=== PATIENT | male | born 1965 | race Caucasian/White ===

== ENCOUNTER → 2017-05-04 | Outpatient (CLI) | payer OTHER | LOC: M RAD 08:02 | DX: I73.9 Peripheral vascular disease, unspecified (principal) | CPT/HCPCS: 93925 ==

== ENCOUNTER → 2017-05-25 | Outpatient (CLI) | payer OTHER ==
[~2017-05-25] MED LIST: HEPARIN 1,000 UNITS/ML 10ML VIAL (FOR RADIOLOGY& DIALYSIS ONLY) As Ordered; ISOVUE-300 61% 50ML VIAL (Q9967) As Ordered; LIDOCAINE 2% MDV 20 ML VIAL As Ordered; MIDAZOLAM INJ 2 MG/2 ML VIAL (J2250) As Ordered; NORCO, ANEXSIA 5/325MG TABLET (HYDROcodone/ACETAMINOPHEN) As Ordered; PROTAMINE SULF INJ 50 MG/5 ML VIAL (J2720) As Ordered; fentaNYL 100 MCG/2 ML INJECTION (J3010) As Ordered
== END | disposition home or self-care (01) ==
LOC: M IRPRO 08:48
DX: I70.298 Other atherosclerosis of native arteries of extremities, other extremity (principal); I70.0 Atherosclerosis of aorta; I10 Essential (primary) hypertension; Z72.0 Tobacco use
CPT/HCPCS: 37221

== ENCOUNTER → 2017-07-19 | Outpatient (CLI) | payer OTHER | LOC: M RAD 08:13 | DX: I70.213 Atherosclerosis of native arteries of extremities with intermittent claudication, bilateral legs (principal); I70.0 Atherosclerosis of aorta; F17.218 Nicotine dependence, cigarettes, with other nicotine-induced disorders | CPT/HCPCS: 76706 ==

== ENCOUNTER → 2018-04-05 | Outpatient (CLI) | payer OTHER | LOC: M RAD 09:51 | DX: I70.213 Atherosclerosis of native arteries of extremities with intermittent claudication, bilateral legs (principal); Z95.828 Presence of other vascular implants and grafts | CPT/HCPCS: 76775 ==

== ENCOUNTER → 2018-04-23 | Outpatient (CLI) | payer OTHER ==
[2018-04-23 16:39] LABS: HEMATOCRIT 40.3 % (42.0-52.0); MEAN CORPUSCULAR HEMOGLOBIN 30.7 pg (27.0-33.0); MEAN CORPUSCULAR HGB CONC 34.7 g/dl (32.0-36.5); MEAN CORPUSCULAR VOLUME 88.4 fl (80.0-96.0); PLATELET COUNT, AUTOMATED 422 10^3/uL (150-450); RED BLOOD COUNT 4.56 10^6/uL (4.30-6.10); WHITE BLOOD COUNT 17.9 10^3/uL (4.0-10.0)
[2018-04-23 16:54] LABS: BLOOD UREA NITROGEN 12 MG/DL (7-18); CALCIUM LEVEL 9.4 MG/DL (8.5-10.1); CARBON DIOXIDE LEVEL 23 MEQ/L (21-32); CHLORIDE LEVEL 111 MEQ/L (98-107); CREATININE FOR GFR 0.98 MG/DL (0.70-1.30); GLOMERULAR FILTRATION RATE > 60.0 (>56); GLUCOSE, FASTING 102 MG/DL (70-100); POTASSIUM SERUM 4.6 MEQ/L (3.5-5.1); SODIUM LEVEL 141 MEQ/L (136-145)
[2018-04-23 19:06] LABS: ATYPICAL LYMPH 2 % (0-5); BASOPHILS 1 % (0-4); EOSINOPHILS 1 % (0-5); LYMPHOCYTES 29 % (16-52); MONOCYTES 6 % (0-8); NEUTROPHILS 61 % (35-75)
[2018-04-23 19:07] LABS: ANISOCYTOSIS 1+; PLATELET ESTIMATE INCREASED (NORMAL); POIKILOCYTOSIS 1+
== END ==
LOC: M LAB 16:07
PROVIDERS: ATTEND Surgery Vascular Surgery
DX: I70.213 Atherosclerosis of native arteries of extremities with intermittent claudication, bilateral legs (principal); I70.0 Atherosclerosis of aorta

== ENCOUNTER → 2018-05-02 | Outpatient (CLI) | payer OTHER ==
[~2018-05-02] MED LIST changes: -HEPARIN 1,000 UNITS/ML 10ML VIAL (FOR RADIOLOGY& DIALYSIS ONLY) As Ordered; +HEPARIN 1,000 UNITS/ML 10ML VIAL (FOR RADIOLOGY& DIALYSIS ONLY) As Ordered ONE; -ISOVUE-300 61% 50ML VIAL (Q9967) As Ordered; +ISOVUE-300 61% 50ML VIAL (Q9967) As Ordered ONE; -LIDOCAINE 2% MDV 20 ML VIAL As Ordered; +LIDOCAINE 2% MDV 20 ML VIAL As Ordered ONE; -MIDAZOLAM INJ 2 MG/2 ML VIAL (J2250) As Ordered; +MIDAZOLAM INJ 2 MG/2 ML VIAL (J2250) As Ordered ONE; -NORCO, ANEXSIA 5/325MG TABLET (HYDROcodone/ACETAMINOPHEN) As Ordered; -PROTAMINE SULF INJ 50 MG/5 ML VIAL (J2720) As Ordered; -fentaNYL 100 MCG/2 ML INJECTION (J3010) As Ordered; +fentaNYL 100 MCG/2 ML INJECTION (J3010) As Ordered ONE
--- NOTE | 2018-05-21 10:19 | REPIR ---
DATE OF PROCEDURE: 05/02/2018 ATTENDING SURGEON: Dr. Jose G Crowder ASSISTANTS: Meche Curtis and Chris Benedict PREOPERATIVE DIAGNOSIS: Bilateral lower extremity claudication left greater than right, aortoiliac atherosclerotic arterial occlusive disease. POSTOPERATIVE DIAGNOSIS: Bilateral lower extremity claudication left greater than right, aortoiliac atherosclerotic arterial occlusive disease. PROCEDURE: Aortogram, iliofemoral angiogram, bilateral lower extremity angiography, Mynx closure of the right common femoral arteriotomy. INDICATION: The patient is a 53-year-old male with severe bilateral lower extremity claudication with left being more symptomatic than the right. The patient will undergo an angiogram with possible angioplasty stent and/or atherectomy. Risks, benefits, and alternative options were discussed with the patient. ANESTHESIA: Local sedation with 1 mg Versed, 50 mcg of fentanyl, and 10 mL of 2% lidocaine. FLUORO TIME: 0.8 minutes. CONTRAST: 25 mL of Isovue-300. SEDATION TIME: Was from 09:21 a.m. to 09:55 a.m. for a total of 34 minutes. The sedation was administered by the nurse nursing room. The cardiopulmonary monitoring was performed by the registered nurse in the room. The sedation and cardiopulmonary monitoring were performed under my direct supervision and I was present for and directed the entire case. There were no sedation related complications. The patient was returned to pre-sedation levels at the completion of the procedure. COMPLICATIONS: None. DRAINS: None. SPECIMENS: None. IMPLANTS: Right common femoral arteriotomy closure with a Mynx closure device. PROCEDURE: The patient was taken to the angiography suite, placed supine on the angiography room table and then prepped and draped in a standard surgical fashion. The right common femoral artery was cannulated with a micropuncture needle after anesthetizing the overlying skin with 2% lidocaine. A micropuncture wire was advanced to the micropuncture needle which was upsized to a micropuncture sheath. A Bentson wire was advanced to the micropuncture sheath which was upsized to a 5-Anguillan sheath. An Omni flush catheter was placed in the aorta and abdominal aortogram was performed. Catheter was pulled down to the level of bifurcation iliac arteries and a pelvic aortogram and iliofemoral angiography was performed. Bilateral lower extremity angiogram was performed. Catheter was then removed over a Bentson wire, a Mynx closure was used close the arteriotomy in the right common femoral artery with an additional 10 minutes of adjunctive pressure applied for hemostasis. Dressings were then applied. The patient tolerated the procedure well. All instrument, sponge and needle counts were correct at the end of the case. There were no complications. Dr. Crowder was present for directed the entire case. The patient was transferred to the holding area and subsequently discharged in stable condition.
== END | disposition home or self-care (01) ==
LOC: M IRPRO 06:40
PROVIDERS: ATTEND Surgery Vascular Surgery
DX: I70.213 Atherosclerosis of native arteries of extremities with intermittent claudication, bilateral legs (principal); I70.0 Atherosclerosis of aorta
CPT/HCPCS: 36200; 75716; 99152; 99153; C1760; C1769; C1887; C1894; G0269; J2250; J3010; Q9967

== ENCOUNTER 2018-06-08 09:38 | Inpatient (IN) | payer OTHER ==
[~2018-06-08] VITALS: Ht 177.8 cm; Wt 74.4 kg
[~2018-06-08 09:38] MED LIST changes: +CLOP75TA2 PO; +FAMO40TA3 PO; +GABA-845 PO; -HEPARIN 1,000 UNITS/ML 10ML VIAL (FOR RADIOLOGY& DIALYSIS ONLY) As Ordered ONE; -ISOVUE-300 61% 50ML VIAL (Q9967) As Ordered ONE; -LIDOCAINE 2% MDV 20 ML VIAL As Ordered ONE; +LISI40TA PO; +LR 1,000 ML IV ONE; -MIDAZOLAM INJ 2 MG/2 ML VIAL (J2250) As Ordered ONE; +QUET1TAB10 PO; +TRAM200T23 PO; +VITATAB11 PO; -fentaNYL 100 MCG/2 ML INJECTION (J3010) As Ordered ONE
[2018-06-08] MEDS ORDERED: HEPARIN SOD (PORCINE) 5000 UNITS/ML VIAL As Ordered ONE (10:42)
[2018-06-08] MEDS ORDERED: LIDOCAINE 1% SDV INJ 30 ML VIAL As Ordered ONE (10:42)
[2018-06-08] MEDS ORDERED: BUPIVACAINE HCL 0.5% 30 ML VIAL As Ordered ONE (10:42)
[2018-06-08] MEDS ORDERED: CONRAY-60 60% 50ML VIAL (Q9961) As Ordered ONE (10:42)
[2018-06-08] MEDS ORDERED: THROMBIN SOLN 20,000 UNITS KIT As Ordered ONE (10:42)
--- NOTE | 2018-06-08 11:59 | HPEPDOC ---
General Date of Admission Jun 08, 2018 at 09:38 Attending Physician: Emmanuel Crowder MD Chief Complaint The patient is a 53-year-old male admitted with left lower extremity dania ication and previous angioplasty and stenting of his left common and external iliac arteries which have now occluded multiple times. Source: Patient, Old records Exam Limitations: No limitations Timing/Duration: Getting worse Severity: Severe History of Present Illness Patient is a 53-year-old male who underwent antiplasmin stenting of his left common and external iliac arteries due to atherosclerotic arterial occlusive disease in the iliac arteries. The stents occluded and were recannulized and restented and have now occluded a second time. Patient has severe debilitating claudication in his left lower extremity with ambulation of approximately 30-40 feet.Patient denies rest pain, TIAs, amaurosis fugax, paralysis or paresis of the extremity, nausea, fevers, chills, vomiting, chest pain, or shortness of breath. Home Medications Scheduled B1/B2/B3/B5/B6 (Vitamin B Complex) 1 Tab Tab, 1 TAB PO DAILY, (Reported) Clopidogrel Bisulfate (Clopidogrel) 75 Mg Tab, 75 MG PO DAILY, (Reported) Famotidine (Famotidine) 40 Mg Tab, 40 MG PO DAILY, (Reported) Gabapentin (Gabapentin) 400 Mg Cap, 400 MG PO DAILY, (Reported) Lisinopril (Lisinopril) 40 Mg Tab, 40 MG PO DAILY, (Reported) Quetiapine Fumerate (Quetiapine Fumarate) 300 Mg Tab, 300 MG PO QHS, (Reported) Tramadol HCl (Tramadol HCl ER) 200 Mg Tab, 200 MG PO DAILY, (Reported) Scheduled PRN Acetaminophen/Hydrocodone (Hazel, Anexsia 5/325) 1 Tab Tab, 1 TAB PO Q4HP PRN for PAIN Allergies Coded Allergies: No Known Allergies (Unverified , 05/31/18) Past Medical History Medical History Hypertension Aortoiliac atherosclerotic arterial occlusive disease Lumbar degenerative disc disease Surgical History Cholecystectomy Right lower extremity angiogram April 2017 Left lower extremity angiogram April 2018 Family History Significant Family History: Diabetes Father has a history of alcoholism Mother has a history of diabetes Social History * Smoker: former Smoker, quit greater than 1 year, less than 1 pack/day Alcohol: Denies Drugs: denies Recent Travel/Sick Contacts: Denies: Recent travel, Recent sick contacts Psychosocial History: No pertinent psych hx Review of Systems Review of Systems General: Reports: Other Symptoms; Denies: Chills, Night Sweats, Fatigue, Malaise, Normal Appetite Constitutional: Denies: Chills, Fever, Malaise, Night Sweats, Weakness, Fatigue, Weight Loss, Lethargy Eyes: Denies: Pain, Vision change, Conjunctivae inflammation, Eyelid inflammation, Redness HEENT: Denies: Head Aches, Ear Pain, Dysphagia, Sinus Congestion, Post Nasal Drip, Sore Throat, Epistaxis Skin: Denies: Rash, Lesions, Jaundice, Bruising, Itching, Dry, Breakdown, Nail Changes Pulmonary: Reports: Other Symptoms; Denies: Dyspnea, Cough, Pleuritic Chest Pain Cardiovascular: Denies: Chest Pain, Palpitations, Orthopnea, Paroxysmal Noc. Dyspnea, Edema, Lt Headedness Gastrointestinal: Denies: Nausea, Vomiting, Abdominal Pain, Diarrhea, Constipation, Melena, Hematochezia Genitourinary: Denies: Dysuria, Frequency, Incontinence, Hematuria, Retention Hematologic: Denies: Bruising, Bleeding Excessively, Petecchia, Purpura, Enlarged Lymph Nodes ENDOCRINE: Denies: Polydipsia, Polyphagia, Polyuria, Heat Intolerance, Cold Intolerance, Other Endocrine Sx Musculoskeletal: Denies: Neck Pain, Back Pain, Shoulder Pain, Arm Pain, Hand Pain, Leg Pain, Foot Pain, Joint Pain, Muscle Pain, Spasms Neurological: Denies: Weakness, Numbness, Incoordination, Change in speech, Confusion, Seizures Psych: Reports: Mood Normal; Denies: Anxiety, Depression, Memory Issues, Thoughts of Self Harm, Anger, Thoughts of Harming Other, Other Psych VITAL SIGNS VITAL SIGNS Vital Signs Date Time Temp Pulse Resp B/P (MAP) Pulse Ox O2 Delivery O2 Flow Rate FiO2 06/08/18 10:50 98.0 76 20 104/50 (68) 97 Room Air Current Medications Medications (Trade) Dose Ordered Sig/Lori Route PRN Reason Start Time Stop Time Status Last Admin Dose Admin Lactated Ringer's 1,000 ml @ 100 mls/hr Q10H ONCE IV 06/08/18 06:00 06/08/18 15:59 06/08/18 11:07 Objective Physical Examination General Exam: Positive: Alert, Cooperative, No Acute Distress Eye Exam: Positive: PERRLA, Conjunctiva & lids normal, EOMI ENT Exam: Positive: Atraumatic, Mucous membr. moist/pink, Pharynx Normal, Tongue Midline, Nares Patent, Ext Auditory Canal Nml, Pinna Normal Neck Exam: Positive: Supple, +2 carotid pulse wo bruit; Negative: JVD, thyromegaly, Lymphadenopathy Chest Exam: Positive: Clear to auscultation, Normal air movement; Negative: Rales, Rhonchi, Wheezing, Diminished Heart Exam: Positive: Rate Normal, Regular Rhythm; Negative: Tachycardic, Bradycardic, Irregular Rhythm, Gallops, Murmurs, Rubs Telemetry: Positive: No significant arrhythmia, Sinus Abdomen Exam: Positive: Normal bowel sounds, Soft; Negative: BS Hyperactive, BS Hypoactive, Tenderness, Hepatospenomegaly, Mass, Hernia Male Exam: Positive: Normal Genital Exam Extremity Exam: Negative: Clubbing, Cyanosis, Edema, Normal pulses, Tenderness, Swelling Skin Exam: Positive: Nl turgor and temperature; Negative: Rash, Breakdown, Lesion, Pruritus Neuro Exam: Positive: Normal Gait, Normal Speech, Strength at 5/5 X4 ext, Normal Tone, Sensation Intact, Cranial Nerves 3-12 NL, Reflexes 2+ Psych Exam: Positive: Mental status NL, Mood NL, Memory Intact, Oriented x 3; Negative: Anxiety Assessment/Plan Assessment Left lower extremity claudication with aortoiliac atherosclerotic arterial occlusive disease and complete occlusion of his previously stented left common a nd external iliac arteries. Plan Patient will undergo a left common iliac artery recanalization with angioplasty and stenting with possible left aorto to femoral bypass graft for revascularization of his left lower extremity. Emmanuel Crowder MD Jun 08, 2018 11:59
[2018-06-08] MEDS ORDERED: MOM 30ML SUSPENSION UDC PO PRN (16:00)
[2018-06-08] MEDS ORDERED: BISACODYL 10 MG SUPP PR PRN (16:00)
[2018-06-08 17:28] VITALS: BP 100/58
[2018-06-08] MEDS ORDERED: NORCO, ANEXSIA 5/325MG TABLET (HYDROcodone/ACETAMINOPHEN) PO ONE (18:00)
[2018-06-08] MEDS: DOCUSATE SODIUM 100 MG CAP PO SCH (20:25)
[2018-06-08] MEDS: SENOKOT S TAB PO SCH (20:25)
[2018-06-08] MEDS: QUEtiapine FUMARATE 100 MG TAB PO SCH (20:25)
[2018-06-08 20:46] VITALS: BP 105/63
[2018-06-09] VITALS (9 sets, daily range): BP systolic 103–125; BP diastolic 55–76; O2SAT 97–99
[2018-06-09] MEDS: VITAMIN B COMPLEX/VIT C CAP PO SCH (08:33)
[2018-06-09] MEDS: FAMOTIDINE 20 MG TAB PO SCH (08:33)
[2018-06-09] MEDS: LISINOPRIL 40 MG TAB PO SCH (08:33)
[2018-06-09] MEDS: GABAPENTIN 400 MG CAP PO SCH (08:33)
[2018-06-09] MEDS: traMADol ER 100MG TABLET (ULTRAM ER) PO SCH (08:33)
[2018-06-09] MEDS: CLOPIDOGREL 75 MG TAB PO SCH (08:34)
[2018-06-09] MEDS: SENOKOT S TAB PO SCH ×2 (08:34→21:39)
[2018-06-09] MEDS: DOCUSATE SODIUM 100 MG CAP PO SCH ×2 (08:34→21:39)
[2018-06-09] MEDS ORDERED: HEPARIN SOD (PORCINE) 5000 UNITS/ML VIAL As Ordered ONE ×2 (16:05→17:06)
[2018-06-09] MEDS ORDERED: ceFAZolin 2 GM/D5W 50 ML IV BAG (J0690 PER 500MG) As Ordered ONE (16:38)
[2018-06-09] MEDS ORDERED: fentaNYL 250 MCG/5 ML INJECTION (J3010) As Ordered ONE (17:06)
[2018-06-09] MEDS ORDERED: LIDOCAINE 2% INJ 100 MG/5 ML SDV (FOR ANES.) As Ordered ONE (17:06)
[2018-06-09] MEDS ORDERED: GLYCOPYRROLATE INJ 0.2 MG/ML 2 ML VIAL As Ordered ONE (17:06)
[2018-06-09] MEDS ORDERED: NEOSTIGMINE 10 MG/10 ML VIAL (J2710) As Ordered ONE (17:06)
[2018-06-09] MEDS ORDERED: PROPOFOL 200 MG/20 ML VIAL As Ordered ONE (17:06)
[2018-06-09] MEDS ORDERED: ONDANSETRON 4MG/2ML VIAL (J2405) As Ordered ONE (17:06)
[2018-06-09] MEDS ORDERED: ROCURONIUM BROMIDE 50 MG/5 ML VIAL As Ordered ONE (17:06)
[2018-06-09] MEDS ORDERED: dexameTHASONE 4 MG/ML 1ML VIAL (J1100) As Ordered ONE (17:06)
[2018-06-09] MEDS ORDERED: MIDAZOLAM INJ 2 MG/2 ML VIAL (J2250) As Ordered ONE (17:06)
[2018-06-09] MEDS ORDERED: METOCLOPRAMIDE INJ 10MG/2ML VIAL (J2765) As Ordered ONE (17:06)
[2018-06-09] MEDS ORDERED: DESFLURANE 240 ML INHALANT As Ordered ONE (17:33)
[2018-06-09] MEDS ORDERED: LR 1,000 ML IV SCH (18:00)
[2018-06-09] MEDS ORDERED: fentaNYL 100 MCG/2 ML INJECTION (J3010) As Ordered ONE (18:01)
[2018-06-09] MEDS: fentaNYL 100 MCG/2 ML INJECTION (J3010) IV PRN ×4 (18:02→18:24)
[2018-06-09] MEDS ORDERED: HYDROMORPHONE HCL 0.5 MG/ 0.5 ML SYRINGE (J1170 PER 1) As Ordered ONE ×5 (18:11→19:04)
[2018-06-09] MEDS: HYDROMORPHONE HCL 0.5 MG/ 0.5 ML SYRINGE (J1170 PER 1) IV PRN ×7 (18:15→19:04)
[2018-06-09] MEDS ORDERED: PERCOCET 5MG/325MG TAB As Ordered ONE ×2 (18:28→19:20)
[2018-06-09] MEDS: PERCOCET 5MG/325MG TAB PO PRN ×2 (18:29→19:29)
--- NOTE | 2018-06-09 19:36 | ROOPDOC ---
Emmanuel Crowder MD Jun 09, 2018 19:35
[2018-06-09] MEDS: QUEtiapine FUMARATE 100 MG TAB PO SCH (21:38)
[2018-06-10] VITALS (8 sets, daily range): BP systolic 110–125; BP diastolic 60–72; O2SAT 94–98
[2018-06-10] MEDS ORDERED: NORCO, ANEXSIA 5/325MG TABLET (HYDROcodone/ACETAMINOPHEN) PO PRN (04:15)
[2018-06-10] MEDS: NORCO, ANEXSIA 5/325MG TABLET (HYDROcodone/ACETAMINOPHEN) PO PRN ×3 (04:23→14:58)
[2018-06-10] MEDS ORDERED: SLF 3 ML SYR IV PRN (08:15)
[2018-06-10] MEDS: LISINOPRIL 40 MG TAB PO SCH (08:35)
[2018-06-10] MEDS: SENOKOT S TAB PO SCH (08:35)
[2018-06-10] MEDS: DOCUSATE SODIUM 100 MG CAP PO SCH (08:35)
[2018-06-10] MEDS: CLOPIDOGREL 75 MG TAB PO SCH (08:35)
[2018-06-10] MEDS: FAMOTIDINE 20 MG TAB PO SCH (08:35)
[2018-06-10] MEDS: GABAPENTIN 400 MG CAP PO SCH (08:36)
[2018-06-10] MEDS: VITAMIN B COMPLEX/VIT C CAP PO SCH (08:36)
[2018-06-10] MEDS: traMADol ER 100MG TABLET (ULTRAM ER) PO SCH (10:32)
[2018-06-10] MEDS ORDERED: SLF 3 ML SYR IV SCH (14:00)
[2018-06-10] MEDS ORDERED: NORCOTAB PO (14:37)
--- NOTE | 2018-06-20 13:39 | RO ---
DATE OF PROCEDURE: 06/09/2018 PREOPERATIVE DIAGNOSES: Left lower extremity claudication. Occluded left common iliac artery stent. POSTOPERATIVE DIAGNOSES: Left lower extremity claudication. Occluded left common iliac artery stent. PROCEDURE: Aortogram. Iliofemoral angiogram. Bilateral common iliac artery angioplasty and stenting with 10 x 37 Express LD stents, postdilated with 10 x 40 mm balloons. Bilateral MYNX closure device. ATTENDING SURGEON: Dr. Jose G Crowder SOIL TECHNICIAN: INDICATION: Patient is a 53-year-old male with significant tobacco history and left lower extremity claudication who has previously undergone bilateral iliac artery angioplasty and stenting and subsequently had occlusion of his left common iliac artery stent. The patient will undergo attempted revascularization with possible left aortoiliofemoral bypass grafting. Risks, benefits and alternative treatment options were discussed with the patient. ANESTHESIA: Monitored anesthesia care (MAC). ESTIMATED BLOOD LOSS: 10 mL. IV FLUIDS: 600 mL. HEPARIN: 7000 units. FLUORO TIME: 5 minutes, 2 seconds. CONTRAST: 20 mL of ISOVUE 300. COMPLICATIONS: None. DRAINS: None. SPECIMENS: None. PROCEDURE: Patient was taken to the operating room, placed supine on the operating room table and bilateral common femoral arterial cannulation is were performed. A wire was advanced through the left common iliac artery which was occluded and then bilateral common iliac artery angioplasty and stenting was performed with 10 x 37 Express LD stents. These were postdilated with 10 x 4 Hancock balloon simultaneously. A completion aortogram showed resolution of the stenosis with excellent flow through both iliac arteries into the external iliac, internal iliac and femoral arteries bilaterally. MYNX closure devices were used to close the arteriotomy and the right and left femoral artery with an additional 10 minutes of adjunctive pressure applied for hemostasis. Dressings were then applied. The patient tolerated the procedure well. All instrument, sponge and needle counts were correct at the end the case. There were no complications. Dr. Crowder was present for and directed the entire case. The patient was transferred to the recovery room awake, alert, extubated and in stable condition.
--- NOTE | 2018-06-20 16:10 | DSES ---
DATE OF ADMISSION: 06/08/2018 DATE OF DISCHARGE: 06/10/2018 ADMITTING DIAGNOSIS: 1. Left lower extremity claudication. 2. Occluded left common iliac artery stent. PROCEDURES PERFORMED DURING ADMISSION: Bilateral common iliac artery angioplasty and stenting. HOSPITAL COURSE: The patient was admitted, taken to the operating room and underwent recanalization and reangioplasty and stenting of his left common iliac artery, as well as angioplasty and restenting of his right common iliac artery. The patient did well postoperatively and had significantly improved perfusion of his left lower extremity. The patient was able to ambulate with only minimal pain and was subsequently discharged home with followup instructions to call for appointment in 7-10 days.
== END 2018-06-10 15:21 | disposition home or self-care (01) | DRG 173 ==
LOC: M OR 09:38 → M MS4PR 17:28 → M PCU 06-09 20:50
PROVIDERS: ADMIT Surgery Vascular Surgery; ATTEND Surgery Vascular Surgery
PROC: 047L3ZZ Dilation of Left Femoral Artery, Percutaneous Approach (ICD-10-PCS; 2018-06-09)
PROC: 047J3ZZ Dilation of Left External Iliac Artery, Percutaneous Approach (ICD-10-PCS; 2018-06-09)
PROC: 047K3ZZ Dilation of Right Femoral Artery, Percutaneous Approach (ICD-10-PCS; 2018-06-09)
PROC: 047M3ZZ Dilation of Right Popliteal Artery, Percutaneous Approach (ICD-10-PCS; 2018-06-09)
PROC: B41DYZZ Fluoroscopy of Aorta and Bilateral Lower Extremity Arteries using Other Contrast (ICD-10-PCS; 2018-06-09)
PROC: 047N3ZZ Dilation of Left Popliteal Artery, Percutaneous Approach (ICD-10-PCS; principal; 2018-06-09 16:05)
DX: T82.856A Stenosis of peripheral vascular stent, initial encounter (principal); I10 Essential (primary) hypertension; I70.218 Atherosclerosis of native arteries of extremities with intermittent claudication, other extremity; Z79.899 Other long term (current) drug therapy; M51.36 Other intervertebral disc degeneration, lumbar region; Z87.891 Personal history of nicotine dependence; Y83.8 Other surgical procedures as the cause of abnormal reaction of the patient, or of later complication, without mention of misadventure at the time of the procedure

== ENCOUNTER → 2018-07-19 | Outpatient (CLI) | payer OTHER ==
[~2018-07-19] MED LIST changes: -LR 1,000 ML IV ONE; +NORCOTAB PO
--- NOTE | 2018-07-19 14:58 | REP ---
Bilateral lower extremity arterial Doppler ultrasound: History: Pain in both legs. Findings: Ankle brachial indices are normal measured at 1.0 in the right and left lower extremity. A bilaterally which are patent. The mid and perfusion at the extremities. Normal triphasic wave form are seen throughout the arterial Doppler tracings of the lower extremities bilaterally except for the distal tibial arteries on the right where waveforms are biphasic. No high-grade stenosis is seen. Peak systolic flow velocity in the distal abdominal aorta is measured at 128.3 cm/sec. Velocity chart right lower extremity arteries: Right JARON 88 cm/S D I A 98 CF A 98 Profunda 58 Proximal SFA 59 Mid SFA 74 Distal SFA 55 Popliteal 38 Proximal AT A 29 Tibioperoneal trunk 40 Proximal TUTOR COORDINATOR 40 Distal TUTOR COORDINATOR 33 Distal AT A 26 Velocity chart left lower extremity arteries: Left JARON 99 cm/S D I A 130 CF A 94 Profunda 55 Proximal SFA 66 Mid SFA 84 Distal SFA 47 Popliteal 45 Proximal AT A 28 Tibioperoneal trunk 38 Proximal TUTOR COORDINATOR 45 Distal TUTOR COORDINATOR 35 Distal AT A 28. Electronically Signed by Enoch Johnson MD 07/19/2018 02:49 P
== END ==
LOC: M RAD 11:25
PROVIDERS: ATTEND Surgery Vascular Surgery
DX: M79.604 Pain in right leg (principal); M79.605 Pain in left leg

== ENCOUNTER → 2018-11-30 | Outpatient (CLI) | payer OTHER ==
[~2018-11-30] MED LIST changes: +HYDR-3715 PO; -NORCOTAB PO
--- NOTE | 2018-11-30 17:32 | REP ---
MR CERVICAL SPINE WITHOUT CONTRAST: HISTORY: Spondylosis. A disc bulge is present at the C3-4 level. There is minimal effacement of the thecal sac without spinal cord compression. Facet hypertrophy is present on the right. This produces moderate narrowing of the right C3 neural foramen. The left C3 neural foramen is patent. A disc bulge is present at the C4-5 level. There is mild effacement of the thecal sac without spinal cord compression. Bilateral uncinate process and right facet hypertrophy are present. These findings produce mild and minimal narrowing of the right and left C4 neural foramina respectively. A disc bulge with associated osteophyte formation is present at the C5-6 level. There is moderate effacement of the thecal sac without spinal cord compression. Bilateral uncinate process hypertrophy is present. This produces moderate narrowing of the C5 neural foramina. A disc bulge with associated osteophyte formation is present at the C6-7 level. There is moderate effacement of the thecal sac without spinal cord compression. Bilateral uncinate process hypertrophy is present. This produces moderate narrowing of the C6 neural foramina. There is no other disc bulge or herniation. The remaining neural foramina are patent. The spinal cord is normal in signal intensity. The C5-6 and C6-7 intervertebral discs are decreased in height consistent with disc degeneration. Heterogenous increased signal intensity on T2 weighted images is present in the C5-7 vertebral bodies. This represents degenerative change. IMPRESSION: There is cervical spondylosis at the C3-4 through C6-7 levels without spinal cord compression. Unreviewed
--- NOTE | 2018-11-30 18:09 | REP ---
MR LUMBAR SPINE WITHOUT CONTRAST: HISTORY: Spondylosis. Decreased signal intensity on T2-weighted images is present in the L3-4 through L5-S1 intervertebral discs. The discs are decreased in height. These findings are consistent with disc degeneration his represents disc degeneration. There is no disc bulge or herniation at the L1-2 level. There is hypertrophy of the posterior articulating facets. The L1 nerves exit the neural foramina without compression. A diffuse disc bulge is present at the L2-3 level. There is minimal compression of the thecal sac. There is hypertrophy of the ligamenta flava and posterior articulating facets. L2 nerves exit the neural foramina without compression. A diffuse disc bulge is present at the L3-4 level. There is minimal compression of the thecal sac. There is hypertrophy of the ligamenta flava and posterior articulating facets. The L3 nerves exit the neural foramina without compression. A diffuse disc bulge is present at the L4-5 level. There is hypertrophy of the ligamenta flava and posterior articulating facets. There are 3 mm of grade 1 spondylolisthesis of L4 on 5. These findings produce minimal central canal stenosis. There is compression of the left L4 nerve in the neural foramen. The right L4 nerve exits the neural foramen without compression. A diffuse disc bulge is present at the L5-S1 level. There is minimal compression of the thecal sac. There is hypertrophy of the posterior articulating facets. There is compression of the L5 nerves in the neural foramina. The conus medullaris is normal in appearance terminating at the level of the T12-L1 intervertebral discs. Increased signal intensity on T2-weighted images is present in the L5 and S1 vertebral bodies. This represents degenerative changes. IMPRESSION: 1. Diffuse disc bulges at the L2-3 and L3-4 levels with minimal thecal sac compression. 2. Minimal central canal stenosis at the L4-5 level secondary to disc bulge, ligamentous, and facet hypertrophy and grade 1 spondylolisthesis. There is compression of the left L4 nerve in the neural foramen. 3. Diffuse disc bulge at the L5-S1 level with minimal thecal sac compression. There is compression of the L5 nerves in the neural foramina. Unreviewed MTDD
== END ==
LOC: M RAD 12:08
PROVIDERS: ATTEND Neurological Surgery
DX: M47.22 Other spondylosis with radiculopathy, cervical region (principal); M47.26 Other spondylosis with radiculopathy, lumbar region

== ENCOUNTER → 2019-04-11 | Outpatient (CLI) | payer OTHER ==
--- NOTE | 2019-04-12 10:44 | REP ---
Bilateral lower extremity arterial Doppler ultrasound: History: Peripheral vascular disease. Claudication. Findings: Ankle brachial indices are normal measured at 1.1 on the right and 1.1 on the left. There is minimal plaquing seen. Normal triphasic waveforms are seen throughout the. No significant stenosis is seen. Right lower extremity arterial Doppler velocity chart: Right CF A 80 cm/S Profunda 80 Proximal SFA 88 Mid SFA 93 Distal SFA 66 Popliteal 46 Proximal AT A 41 Tibioperoneal trunk 61 Proximal PUMPER BREWERY 46 Distal PUMPER BREWERY 99 Distal AT A 40 Left lower extremity arterial Doppler velocity chart: Left CF A 86 cm/S Profunda 79 Proximal SFA 63 Mid SFA 85 Distal SFA 63 Popliteal 52 Proximal AT A 42 Tibioperoneal trunk 59 Proximal PUMPER BREWERY 57 Distal PUMPER BREWERY 69 Distal AT A 68 Electronically Signed by Enoch Johnson MD 04/11/2019 05:06 P
== END ==
LOC: M RAD 15:38
PROVIDERS: ATTEND Physician Assistant
DX: I70.213 Atherosclerosis of native arteries of extremities with intermittent claudication, bilateral legs (principal); F17.218 Nicotine dependence, cigarettes, with other nicotine-induced disorders